=== PATIENT | male | born 1980 | race Two or more races ===

== ENCOUNTER 2024-10-05 07:41 | Emergency (ER) | payer MEDICAID, SELFPAY ==
[2024-10-05 07:42] VITALS: BMI 33.3
[2024-10-05 08:02] VITALS: BP 115/77; PULSE 102; RESP 22; TEMP 36.9; O2SAT 92
--- NOTE | 2024-10-05 08:15 | PD.ASTHM ---
ED Asthma RME/HPI General Chief Complaint: Asthma Stated Complaint: DIFF BREATHING, HX OF ASTHMA Time Seen by Provider: 10/05/24 07:47 Source: patient Arrival date/time: 10/05/24 07:41 44-year-old male significant past medical history of asthma not well-controlled presents to the emergency department with complaints of 1 day history of wheezing. Reports been using his rescue inhaler at home with no significant improvement. He requesting DuoNeb and steroid. Mode of arrival: ambulatory Related Data Previous Rx's ?Medication ?Instructions ?Recorded loperamide 2 mg capsule 2 mg PO QDAY #7 caps 03/03/20 (Anti-Diarrheal (loperamide)) albuterol sulfate 90 mcg/actuation 2 puff inhalation QID #8.5 grams 11/17/22 aerosol inhaler Allergies Allergy/AdvReac Type Severity Reaction Status Date / Time No Known Allergies Allergy Verified 10/05/24 07:44 Review of Systems Review of Systems Systems Reviewed: All systems reviewed, normal except as documented Narrative Review of Systems: Gen: No fever, no chills, no weight loss EYES: No discharge, no visual changes, no pain HEENT: No ear pain, no congestion, no sore throat PULM: No shortness of breath, no cough, no congestion CV: No chest pain, no dyspnea on exertion, no palpitations GI: No nausea, no vomiting, no diarrhea, no pain, no constipation : No frequency, no urgency,? no dysuria Musc/skel: No joint pain, no back pain Skin: No rash? Psyc: No hallucinations, no depression Heme/Lymph: No easy bleeding or bruising tendencies Neuro: No weakness, no headache ED Exam Narrative Physical exam: General: Sittiing in Exam table in no acute distress, answering questions appropriately HENT: normocephalic, atraumatic, EOMI, PERRLA, moist mucous membranes Chest: chest wall is nontender Cardiac: regular rate and rhythm, normal S1 and S2, no murmurs, rubs, or gallops, capillary refill ?2 seconds Pulmonary:++ wheezing, crackles, or rhonchi Abdominal: active bowel sounds, soft, nontender, nondistended Neuro: A&OX3, CN II-XII intact, sensation grossly intact bilaterally in UE and LE. Skin: no rashes, no ecchymosis Ext: no lower extremity edema Course Quality Measures none Orders Category Date Time Status Albuterol/Ipratr Rt Ashanti [Duoneb Rt Ashanti] Med 10/05/24 07:59 Discontinued 3 ml INH X1 ONE predniSONE Med 10/05/24 07:59 Discontinued 60 mg PO X1 ONE Vital Signs Vital signs: Vital Signs Temperature 98.4 F 10/05/24 08:02 Pulse Rate 102 H 10/05/24 08:02 Respiratory Rate 22 H 10/05/24 08:02 Blood Pressure 115/77 10/05/24 08:02 Pulse Oximetry (%) 92 L 10/05/24 08:02 Oxygen Delivery Method Room Air 10/05/24 08:02 Asthma MDM Narrative MDM Narrative:: Patient received 1 DuoNeb and 60 mg of prednisone Unable to reevaluate walked in the room patient nowhere to be found. Patient eloped ED. Patient data External records reviewed:: [facility] previous records Clinical information provided by:: patient Social determinants that could affect healthcare access:: none Patient has the following chronic illnesses:: ASTHMA How is presenting disease/condition affected by chronic disease/condition?: exacerbated by Evaluation data The following diagnostics were reviewed and interpreted by me:: other (specify) Lab and/or radiology exams considered but not ordered:: yes considered xray Interpretation Summary: n/a Medications / Prescriptions Medications or Prescriptions considered but not ordered:: no Medication administrations:: Medication Administration History Discontinued Medications Albuterol/Ipratropium (Albuterol/Ipratropium (Duoneb) Rt Ashanti 3 Ml Nebu) 3 ml INH X1 ONE Stop: 10/05/24 08:00 Prednisone (Prednisone 20 Mg Tablet) 60 mg PO X1 ONE Stop: 10/05/24 08:00 Consultations Consultation(s) initiated? (list below): No Diagnosis Differential diagnosis asthma: Acute exacerbation, Status asthmaticus, Acute asthmatic bronchitis and Pneumonia Most likely diagnosis given after review of the tests above:: Acute asthma exacerbation Admission Indicated Admission indicated?: not indicated Admission Request Was there a request for admission?: No Disposition Plan Disposition Plan: other (specify) (eloped) Discharge Plan Plan Patient Disposition: Elopement Prescriptions/Referrals Prescriptions/Med Rec: No Action loperamide [Anti-Diarrheal (loperamide)] 2 mg capsule 2 mg PO QDAY Qty: 7 0RF albuterol sulfate 90 mcg/actuation HFA aerosol inhaler 2 puff inhalation QID Qty: 8.5 0RF Referrals: Manuelito(LW),DOMINIQUE Oconnor [Primary Care Provider] - In 1 week Problem List Clinical Impression: Asthma Patient/Caregiver Discharge Instructions Print Language: Greenlandic MD Attestation MD Attestation The patient was seen by the midlevel practitioner. I, the co-signing physician, was present during the entire ER visit. While I did not physically examine the patient, I was available for consultation as needed.
[2024-10-05] MEDS: ALBUTEROL/IPRATROPIUM (Duoneb) RT SOL 3 ML NEBU INH (08:21)
[2024-10-05 08:23] VITALS: PULSE 92; RESP 20; O2SAT 98
[2024-10-05] MEDS: predniSONE 20 MG TABLET 60 MG PO (08:32)
== END 2024-10-05 09:53 | disposition left against medical advice (07) ==
PROVIDERS: Emergency Provider Emergency Medicine; PCP Nurse Practitioner Family
DX: J45.909 Unspecified asthma, uncomplicated (principal)
CPT/HCPCS: 94640; 99281; A9270; J7512

== ENCOUNTER 2024-12-25 12:29 | Emergency (ER) | payer MEDICAID, SELFPAY ==
[2024-12-25 12:30] VITALS: BMI 31.6
[2024-12-25 13:49] VITALS: BP 111/75; PULSE 76; RESP 18; TEMP 36.5; O2SAT 95
--- NOTE | 2024-12-25 13:49 | XR_ITS ---
Examination: Ribs, right, with PA chest, 5 views Technique: Chest PA, RIBS AP, RPO, LPO, AP coned lower ribs 5 views Exam date and time: December 25, 2024 1352 hours INDICATIONS: Right rib pain beginning today Findings: Normal heart size No pneumothorax or pneumonia Adequate bone density Ribs appear intact IMPRESSION: No pneumothorax, pulmonary contusion or hemothorax Ribs appear intact
[2024-12-25] MEDS: CYCLObenzaPRINE 5 MG TABLET PO (13:52)
--- NOTE | 2024-12-25 13:53 | PD.EDCHEST ---
ED Chest Pain RME/HPI General Chief Complaint: Chest Pain Stated Complaint: Right rib pain x 2 week. Pt bumped it on car. Time Seen by Provider: 12/25/24 13:23 Source: patient Arrival date/time: 12/25/24 12:29 This is a 44-year-old male presents emergency department complaints of right rib pain. Patient reports that 2 weeks ago he had a right rib contusion is having pain since then. Denies shortness of breath. Pain is elicited and worsened with deep inspiration. Patient requesting chest x-ray. Mode of arrival: ambulatory Limitations: no limitations Related Data Previous Rx's ?Medication ?Instructions ?Recorded loperamide 2 mg capsule 2 mg PO QDAY #7 caps 03/03/20 (Anti-Diarrheal (loperamide)) albuterol sulfate 90 mcg/actuation 2 puff inhalation QID #8.5 grams 11/17/22 aerosol inhaler cyclobenzaprine 5 mg tablet 5 mg PO TID PRN muscle spasm #10 12/25/24 tabs ibuprofen 800 mg tablet (IBU) 800 mg PO Q8H #20 tabs 12/25/24 Allergies Allergy/AdvReac Type Severity Reaction Status Date / Time No Known Allergies Allergy Verified 10/05/24 07:44 Review of Systems Review of Systems Systems Reviewed: All systems reviewed, normal except as documented Narrative Review of Systems: Gen: No fever, no chills, no weight loss EYES: No discharge, no visual changes, no pain HEENT: No ear pain, no congestion, no sore throat PULM: No shortness of breath, no cough, no congestion CV: Positive chest pain with deep inspiration, no dyspnea on exertion, no palpitations GI: No nausea, no vomiting, no diarrhea, no pain, no constipation : No frequency, no urgency, no dysuria Musc/skel: No joint pain, no back pain Skin: No rash Psyc: No hallucinations, no depression Heme/Lymph: No easy bleeding or bruising tendencies Neuro: No weakness, no headache ED Exam General Limitations: Present no limitations General appearance: Present alert and in no apparent distress Head Head exam: Present atraumatic Eye Eye exam: Present normal appearance, PERRL and EOMI ENT ENT exam: Present normal exam, normal oropharynx and mucous membranes moist Neck Neck exam: Present normal inspection, full ROM and trachea midline Chest Chest inspection: Present symmetric chest wall rise and tenderness (Right anterior mid rib tenderness) Respiratory Respiratory exam: Present normal lung sounds bilaterally; Absent respiratory distress, wheezes or stridor Cardiovascular Cardiovascular exam: Present regular rate, normal rhythm and normal heart sounds Abdominal Exam Abdominal exam: Present soft and normal bowel sounds Extremities Exam Extremities exam: Present normal inspection and full ROM Back Exam Back exam: Present normal inspection and full ROM Neurological Exam Neurological exam: Present alert, oriented X3 and CN II-XII intact Psychiatric Psychiatric exam: Present normal affect and normal mood Skin Skin exam: Present warm, dry, intact and normal color Course Quality Measures none Orders Category Date Time Status XR ribs RT min 3V w CXR1V Stat Exams 12/25/24 13:49 Completed CYCLObenzaPRINE [Flexeril] Med 12/25/24 13:49 Discontinued 5 mg PO X1 ONE Vital Signs Vital signs: Vital Signs Temperature 97.7 F 12/25/24 13:49 Pulse Rate 76 12/25/24 13:49 Respiratory Rate 18 12/25/24 13:49 Blood Pressure 111/75 12/25/24 13:49 Pulse Oximetry (%) 95 12/25/24 13:49 Oxygen Delivery Method Room Air 12/25/24 13:49 Chest Pain Patient data External records reviewed:: [facility] previous records Clinical information provided by:: patient Social determinants that could affect healthcare access:: none Patient has the following chronic illnesses:: None How is presenting disease/condition affected by chronic disease/condition?: no chronic disease Evaluation data The following diagnostics were reviewed and interpreted by me:: radiology exam(s) Lab and/or radiology exams considered but not ordered:: No Interpretation Summary: Examination: Ribs, right, with PA chest, 5 views Technique: Chest PA, RIBS AP, RPO, LPO, AP coned lower ribs 5 views Exam date and time: December 25, 2024 1352 hours INDICATIONS: Right rib pain beginning today Findings: Normal heart size No pneumothorax or pneumonia Adequate bone density Ribs appear intact IMPRESSION: No pneumothorax, pulmonary contusion or hemothorax Ribs appear intact Medications / Prescriptions Medications or Prescriptions considered but not ordered:: No Medication administrations:: Medication Administration History Discontinued Medications Cyclobenzaprine HCl (Cyclobenzaprine 5 Mg Tablet) 5 mg PO X1 ONE Stop: 12/25/24 13:50 Last Admin: 12/25/24 13:52 Dose: 5 mg Documented By: DB All medications administered and effective Consultations Consultation(s) initiated? (list below): No Diagnosis Chest Pain Differential Diagnosis: fracture of rib, pneumothorax, atypical chest pain and costochondritis Most likely diagnosis given after review of the tests above:: Chest contusion rib contusion Admission Indicated Admission indicated?: not indicated Admission Request Was there a request for admission?: No Disposition Plan Disposition Plan: Discharge Discharge Attestation Discharge Attestation: The patient and all family members were given an opportunity to ask questions and understood the discharge instructions. Discharge instructions specifically effects, indications for sooner follow up or return to the emergency department, and the expected course of current diagnosis. Patient condition: Stable Discharge Plan Plan Patient Disposition: HOME (Self Care) Patient condition on transfer: Stable Prescriptions/Referrals Prescriptions/Med Rec: New ibuprofen [IBU] 800 mg tablet 800 mg PO Q8H Qty: 20 0RF cyclobenzaprine 5 mg tablet 5 mg PO TID PRN (Reason: muscle spasm) Qty: 10 0RF No Action loperamide [Anti-Diarrheal (loperamide)] 2 mg capsule 2 mg PO QDAY Qty: 7 0RF albuterol sulfate 90 mcg/actuation HFA aerosol inhaler 2 puff inhalation QID Qty: 8.5 0RF Problem List Clinical Impression: Contusion of rib Patient/Caregiver Discharge Instructions Discharge Activity: activity as tolerated Education Materials: ED Contusion, Rib Additional Instructions: Your x-ray does not demonstrate no fractures most likely pain from the contusion. These can take [id number] Tylenol or ibuprofen Muscular relaxer sent to the pharmacy. Follow up with your primary doctor. Return to the emergency department this any worsening symptoms change in condition. Print Language: Turkmen Stand Alone Forms: [place] [employer] Info., Patient Portal Info Letter LUDY/DOMINIQUE Supervising Physician LUDY/DOMINIQUE Supervising Physician: Dr Glasgow
== END 2024-12-25 15:17 | disposition home or self-care (01) ==
PROVIDERS: Emergency Provider Emergency Medicine
DX: S20.211A Contusion of right front wall of thorax, initial encounter (principal); W22.8XXA Striking against or struck by other objects, initial encounter; Y92.810 Car as the place of occurrence of the external cause
CPT/HCPCS: 71101; 99283; A9270